=== PATIENT | male | born 1965 | race Caucasian/White ===

== ENCOUNTER 2017-08-09 20:00 | Emergency (ER) | payer OTHER ==
[~2017-08-09] VITALS: Ht 167.6 cm; Wt 113.4 kg
[~2017-08-09 20:00] MED LIST: ANTIDEPRESSANT; ATORVASTATIN CA40 MG PO; BP MED; CELEXA20 MG PO; COLACE100 MG PO; DELTASONE20 MG PO; HYDROCODONE-AP1 EAC6 PO; LOPRESSOR50 PO; LOTENSIN40 MG PO; METFORMIN HCL500 MG PO; NORCO 5-325 TA1 EACH PO; NORVASC5 MG PO; PLAVIX 75 MG TA75 M1 PO
[2017-08-09] MEDS ORDERED: METFORMIN HCL500 MG PO (20:14)
[2017-08-09] MEDS ORDERED: MOBIC7.5 MG PO (20:36)
== END 2017-08-09 21:02 | disposition home or self-care (01) ==
LOC: ER 20:00
DX: G56.01 Carpal tunnel syndrome, right upper limb (principal); I10 Essential (primary) hypertension; E11.9 Type 2 diabetes mellitus without complications; F17.210 Nicotine dependence, cigarettes, uncomplicated; Z88.1 Allergy status to other antibiotic agents

== ENCOUNTER → 2018-04-20 | Outpatient (CLI) | payer OTHER ==
[~2018-04-20] MED LIST changes: +MOBIC7.5 MG PO
== END ==
LOC: LAB 15:53
DX: R06.02 Shortness of breath (principal)

== ENCOUNTER 2020-05-30 08:59 | Observation (INO) | payer OTHER ==
[2020-05-30] VITALS (9 sets, daily range): BP systolic 159–240; BP diastolic 81–123
[~2020-05-30] VITALS: Ht 177.8 cm; Wt 111.6 kg
--- NOTE | ~2020-05-30 | D ---
[facility] [place] [address] DISCHARGE SUMMARY Name: ASHLEY SANZ Room #: 219-P [facility] Sanket Rodriguez#: [id number] Admission: 05/30/20 Attend Phys: Alfredo Mcdonald MD, Discharge: Date of : 63 Report #: [id number] THIS REPORT FOR: cc: Yary Kumar Stefanie A. RNP Mancuso, Gerald M. MD [facility] ~ HOSPITAL COURSE: The patient is a 54-year-old male who presents with onset of chest pain pressure consistent with his angina with subtle lateral wall ST elevation. He has a history of a DYSON to an LAD and SVG sequential to diagonal OM. That was we believe 5-6 years ago. He has been noncompliant, has taken no medications. Probably for the last year or so, continued tobacco use. Subsequently, went to the catheterization lab where I was able to dilate the subtotaled LAD which filled the mild to moderate size diagonal branch which had been previously bypassed the graft to the diagonal and the OM sequential was occluded. The LAD is occluded, but filled via DYSON graft and the [place] circumflex is large and mildly ectatic, but patent and the dominant right is also patent. He is going to be discharged on metoprolol 25 mg, olmesartan 40, atorvastatin 40, clopidogrel 75, a full aspirin for a month and then a baby aspirin. We will utilize dual antiplatelet therapy for a year, amlodipine 10. No lifting for 48 hours. No lying in tub, Jacuzzi or segura for a week. 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 His H and H are 14 and 44 today. His creatinine is 1.0. Troponin peaked at 17. His LDL was 123, his HDL was 40, total 182 that was off of medications. DISCHARGE DIAGNOSES: 1. Non-ST elevation myocardial infarction with successful emergent proximal left anterior descending stent, which was filling a diagonal branch. The remainder of the left anterior descending was filled via the left internal mammary artery as stated above. The bypass graft to the diagonal obtuse marginal and sequence was occluded. The large obtuse marginal was patent as I stated as was the dominant right. Ejection fraction was near normal. 2. Hypertension. 3. Hypercholesterolemia. 4. Continued tobacco abuse. 5. Tobacco/marijuana abuse. 6. Degenerative joint disease. A followup will be arranged. He currently believes he may get benefit from a security job and not yet. [facility]. I suggested he will follow up with Dr. Inocencio Saucedo at [facility]. He is to call our office if he has any issues and we certainly will try to help. By: [phone] Alfredo Mcdonald MD, FACC /nt
[2020-05-30 09:24] LABS: ABSOLUTE NEUTROPHILS 9.4 thou/uL (1.4-8.2); EOSINOPHILS 2.2 % (0.0-3.0); HEMATOCRIT 47.8 % (42.0-52.0); HEMOGLOBIN 16.3 gm/dL (14.0-18.0); LYMPHOCYTES 23.3 % (24.0-44.0); MCH 28.7 pg (26.0-34.0); MCHC 34.2 g/dL (28.0-37.0); MCV 84.1 fL (80.0-100.0); MONOCYTES 6.1 % (1.0-8.0); PLATELET COUNT 225 thou/uL (150-400); POLYS 67.4 % (36.0-66.0); RBC 5.69 mil/uL (4.50-6.00); RDW 13.7 % (10.5-14.5); WBC 13.9 thou/uL (4.0-11.0)
[2020-05-30 09:38] LABS: ANION GAP 6 mmol/L (7-16); BUN 10 mg/dL (7-18); CALCIUM 8.5 mg/dL (8.5-10.1); CHLORIDE 101 mmol/L (98-107); CO2 29 mmol/L (21-32); GLUCOSE 128 mg/dL (74-106); POTASSIUM 3.4 mmol/L (3.5-5.1); SODIUM 136 mmol/L (136-145)
[2020-05-30 09:40] LABS: APTT 29.3 Seconds (24.5-32.8); INR 0.92; PROTIME 10.1 Seconds (9.3-11.4)
[2020-05-30 09:48] LABS: ALBUMIN 3.4 g/dL (3.4-5.0); SGOT 13 U/L (15-37); SGPT 20 U/L (30-65); TOTAL BILIRUBIN 0.7 mg/dL (0.2-1.0); TOTAL PROTEIN 7.7 g/dL (6.4-8.2); TROPONIN-I <0.06 ng/mL (<0.06)
[2020-05-30 11:53] LABS: CHOLESTEROL 182 mg/dL (<200); HDL CHOLESTEROL 40 mg/dL (>40); LDL CHOLESTEROL 123 mg/dL (<100); TC:HDL 4.6 Ratio (Not establshd); TRIGLYCERIDE 98 mg/dL (<150); VLDL 20 mg/dL (<40)
--- NOTE | 2020-05-30 12:52 | NUR ---
RECEIVED PT FROM [facility] AT 1120. PT LAYING FLAT. RIGHT GROIN SITE ASSESSED WITH HARRIS DUNCAN. PTS GROIN SITE IS SOFT, MILD TENDERNESS, NO HEMATOMA PRESENT. PT ADMISSION ORDERS AND ASSESSMENT COMPLETE. VSS. WILL CONTINUE TO MONITOR.
--- NOTE | 2020-05-30 13:01 | NUR ---
PT STATES HE DOES NOT TAKE ANY HOME MEDS DESPITE THE LIST OF CARDIAC MEDICATIONS.
--- NOTE | 2020-05-30 13:37 | 2DMMODE ---
[facility] [place] [address] 2 D/M-MODE ECHOCARDIOGRAM Name: ASHELY SANZ Room #: 219-P ADM Sanket M.RToan#: [id number] Admission: 05/30/20 Attend Phys: Alfredo Mcdonald MD, Discharge: Date of : 63 Report #: [id number] THIS REPORT FOR: cc: Yary Kumar Stefanie A. RNP Park, Jin S. MD ~ APPROVED REPORT Study performed: 05/30/2020 12:34:37 EXAM: Comprehensive 2D, Doppler, and color-flow Echocardiogram Patient Location: Bedside Room #: 219 Status: routine BSA: 2.16 HR: 81 bpm BP: 240/103 mmHg Rhythm: NSR Other Information Study Quality: Good/pt flat on back Indications STEMI, status post emergent PCI Hx: CABG, HTN, HLP, tobacco and drug abuse. 2D Dimensions RVDd: 31.74 mm IVSd: 14.00 (7-11mm) LVOT Diam: 22.00 (18-24mm) LVDd: 43.00 mm PWd: 14.00 (7-11mm) LVDs: 31.00 (25-40mm) Left Atrium: 38.00 (27-40mm) Aortic Root: 36.00 mm Volumes Left Atrial Volume (Systole) Single Plane 4CH: 46.12 mL Single Plane 2CH: 55.85 mL LA ESV Index: 25.00 mL/m2 Aortic Valve AoV Peak Isidro.: 1.59 m/s AO Peak Gr.: 10.11 mmHg LVOT Max P.16 mmHg LVOT Max V: 1.14 m/s [facility] [address] [place] [address] 2 D/M-MODE ECHOCARDIOGRAM Name: ARABELLAHAYDEEASHLEY SHIELDS Room #: 219-P [facility] IN [facility]#: [id number] Admission: 05/30/20 Attend Phys: Alfredo Mcdonald, Discharge: Date of : 63 Report #: [id number] Vmax: 2.62 cm2 Mitral Valve E/A Ratio: 0.6 MV Decel. Time: 267.29 ms MV E Max Isidro.: 0.60 m/s MV A Isidro.: 1.05 m/s MV PHT: 77.51 ms IVRT: 107.27 ms Pulmonary Valve PV Peak Isidro.: 1.29 m/s PV Peak Gr.: 6.68 mmHg Pulmonary Vein P Vein S: 0.40 m/s P Vein A: 0.30 m/s P Vein D: 0.28 m/s P Vein A Dur.: 114.2 msec P Vein S/D Ratio: 1.43 Tricuspid Valve TR Peak Isidro.: 2.88 m/s RAP Estimate: 5.00 mmHg TR Peak Gr.: 33.26 mmHg PA Pressure: 38.00 mmHg Left Ventricle The left ventricle is normal size. There is normal LV segmental wall motion. Mild concentric left ventricular hypertrophy. Left ventricular systolic function is normal. LVEF is 65%. Mild diastolic dysfunction is present. Right Ventricle The right ventricle is normal size. The right ventricular systolic function is normal. Atria The left atrium size is normal. The right atrium size is normal. Aortic Valve The aortic valve is normal in structure. No aortic regurgitation is present. There is no aortic valvular stenosis. Mitral Valve The mitral valve is normal in structure. There is no mitral valve regurgitation noted. No evidence of mitral valve stenosis. Tricuspid Valve [facility] [address] [place] [address] 2 D/M-MODE ECHOCARDIOGRAM Name: ASHLEY SANZ Room #: 219-P [facility] IN M.R.#: [id number] Admission: 05/30/20 Attend Phys: Alfredo Mcdonald, Discharge: Date of : 63 Report #: [id number] The tricuspid valve is normal in structure. Trace tricuspid regurgitation. Estimated PAP is 35 mmHG. Pulmonic Valve The pulmonary valve is normal in structure. There is no pulmonic valvular regurgitation. Great Vessels The aortic root is normal in size. The ascending aorta is normal in size. IVC is not well visualized. Pericardium There is no pericardial effusion. <Conclusion> The left ventricle is normal size. Mild concentric left ventricular hypertrophy. Left ventricular systolic function is normal. Mild diastolic dysfunction is present. The right ventricle is normal size. The left atrium size is normal. The aortic valve is normal in structure. There is no mitral valve regurgitation noted. <ELECTRONICALLY SIGNED> By: Salty Kim MD 05/30/20 1337 133 133 Salty Kim MD /INF
--- NOTE | 2020-05-30 15:58 | NUR ---
ASSESSMENT: CM REVIEWED CHART. PT IS HERE S/P EMERGENT CATH. CM MET WITH PATIENT AND HIS SIGNIFICANT OTHER IN HIS ROOM. PT IS ALERT AND ORIENTED X4. PT REPORTS THAT THEY LIVE IN A SPLIT LEVEL HOME. PT REPORTS ABOUT 5 STEPS WITH HANDRAILS TO ENTER AND ANOTHER 5 STEPS OR SO TO HIS BEDROOM. PT REPORTS BEING FULLY INDEPENDENT WITH ADLS AND AMBULATION. PT IS SHOWING PATIENT PAY. PT REPORTS HE JUST RECENTLY GOT INSURANCE THROUGH HIS JOB AT [employer] AND REPORTS IT IS [place]. HE DOES NOT HAVE A REF # OR GROUP #. CM NOTIFIED UR RN. PT REPORTS THAT HE DOES NOT HAVE A PCP. CM STATED HE WILL LIKELY HAVE TO CALL HIS INSURANCE TO SEE HOW IS IN NETWORK BUT CM PROVIDED HIM WITH SAFETY NET CLINIC INFORMATION IN CASE WELL CONTACT FOR [facility] AND [facility]. CM PROVIDED PATIENT WITH THIS AND GOOD RX CARD. PT DOES NOT ANTICIPATE ANY NEEDS FROM CM.
--- NOTE | 2020-05-30 16:13 | CATHLAB ---
[facility] [place] [address] INVASIVE PROCEDURE REPORT Name: ASHLEY SANZ Room #: 219-P ADM Sanket Rodriguez#: [id number] Admission: 05/30/20 Attend Phys: Alfredo Mcdonald MD, Discharge: Date of : 63 Report #: [id number] THIS REPORT FOR: cc: Yary Kumar Stefanie A. RNP Mancuso, Gerald M. MD [facility] ~ APPROVED REPORT Study performed: 05/30/2020 09:10:22 Patient Details Patient Status: ED Room #: The patient is a 54 year-old male Event Personnel Alfredo Mcdonald Public Affairs Specialist, Shanna Patel RTR, TOBACCO STEMMER Monitor, Mireya Thibodeaux Ramos, Dexter RN RN, Galdino Barros RN utility worker forge Performed Art Access - R femoral artery* Left Heart Cath Coronaries, Bypass Grafts 6715451 CCORCABG Aortogram Abdominal Peripheral Angio 854035 87502 Initial Mod Sed Same Phys/QHP Gr5y 489402 43225 Mod Sed Same Phys/QHP Ea 087551 LEELEE Revasc AMI Total/Sub Single LAD C9606 AMIREVSING Hemostasis w/ Mynx Indication STEMI (>0 to less than or equal to 6 hours), Chest pain Procedure Narrative The Right Groin^ was infiltrated with 1% Lidocaine subcutaneous anesthesia. A PINNACLE 6FR Sheath #[id number] sheath was inserted into the RFA^. Coronary angiography was performed using coronary diagnostic catheters. The right coronary system was accessed and visualized with a JR4 catheter. The left coronary system was accessed and visualized with a JL4 catheter. The left ventricle was accessed and visualized with a ANGLED PIGTAIL catheter. Left ventriculogram was performed in 30 degree projection. An aortogram of the abdominal aorta was performed. Closure device was deployed with a 6 Fr MYNXGRIP 6/7F #[id number]. The patient tolerated the procedure well and there were no complications associated with the procedure. There was no hematoma. Intraoperative Conscious Sedation [facility] [address] [place] [address] INVASIVE PROCEDURE REPORT Name: ASHLEY SANZ Room #: 219-P [facility] IN M.R.#: [id number] Admission: 05/30/20 Attend Phys: Alfredo Mcdonald, Discharge: Date of : 63 Report #: [id number] Sedation start time: 09:33 Case end Time: 10:36 Fentanyl 50 mcg Versed 1 mg Fluoro Time: 8.50 minutes Dose: DAP 54809.20 cGycm2 2573 mGy Contrast Type and Amount: Omnipaque 225 ml Hemodynamics The aortic pressure is 213/104 mmHg with a mean of 147 mmHg. The left ventricular pressure is 196/16 mmHg with a mean of mmHg. The left ventricular end diastolic pressure is 40 mmHg. PCI Technique Lesion Percutaneous coronary intervention was performed on the proximal left anterior descending artery segment. A LAUNCHER 6FR EBU 3.75 #[id number] Guide Catheter was used to engage the ostium. A Luge Wire .014 x 182CM #[id number] Interventional Guidewire was used to cross the lesion. BALLOON DILATION A Balloon catheter Sprinter OTW 2.5 x 12 #[id number] was inserted and inflated up to 8.00atm for 24seconds. Additional Inflation: 12.00atm for 22seconds. STENT DEPLOYMENT A drug-eluting stent RESOLUTE NELSON OTW 2.75 X 12 #[id number] was inserted and inflated up to 12.00atm for 23seconds. Additional Inflation: 15.00atm for 22seconds. Conclusion #1. Successful PTCA stent of a subtotal ostial LAD lesion. Filling the diagonal branch the LAD is occluded and filled via DYSON. The graft to the diagonal branch is occluded. Final result was MAURO grade III flow with a 2.75 x 12 resolute [place] in the proximal LAD. #2 left main mild disease large giving rise to LAD circumflex. #3 the LAD occludes after the diagonal and septal takeoff. It is filled via DYSON graft. #4 DYSON to LAD is intact with mild irregularities in the LAD to the apex. #5 circumflex OM is large and somewhat ectatic. High rising first OM moderate disease but small area of distribution. #6 a large circumflex vessel fills a large distal OM branch with mild ectasia and then the distal circumflex in the AV groove has an eccentric 70% lesion treat medically #7 dominant right coronary artery with mild irregularities filling a [facility] [address] [place] [address] INVASIVE PROCEDURE REPORT Name: ASHLEY SANZ Room #: 219-P [facility] IN M.R.#: [id number] Admission: 05/30/20 Attend Phys: Alfredo Mcdonald, Discharge: Date of : 63 Report #: [id number] moderate sized PDA free of disease #8 normal left ventricular size EF near normal subtle anterior lateral wall leg EF 55% #9 abdominal aorta revealing aortic tortuosity but no aneurysm. Renal arteries appear to be patent. Recommendations and plan: Continue aggressive risk factor modification. Dual antiplatelet therapy has been initiated. Patient has had issues with noncompliance and perhaps some vasoconstrictive recreational drugs. Pain-free resolution of EKG changes transfer to CCU. <ELECTRONICALLY SIGNED> By: Alfredo Mcdonald MD, FACC 05/30/20 1613 161 12 Alfredo Mcdonald MD, FACC /INF
[2020-05-31 00:25] VITALS: BP 178/101
[2020-05-31 03:21] LABS: HEMOGLOBIN 14.6 gm/dL (14.0-18.0); MCH 28.1 pg (26.0-34.0); MCHC 33.1 g/dL (28.0-37.0); RBC 5.18 mil/uL (4.50-6.00); RDW 13.9 % (10.5-14.5); WBC 16.8 thou/uL (4.0-11.0)
[2020-05-31 03:25] LABS: CALCIUM 8.2 mg/dL (8.5-10.1); POTASSIUM 3.4 mmol/L (3.5-5.1)
[2020-05-31 03:37] LABS: ALBUMIN 3.2 g/dL (3.4-5.0); TOTAL PROTEIN 6.9 g/dL (6.4-8.2)
[2020-05-31 03:38] LABS: TROPONIN-I 17.64 ng/mL (<0.06)
[2020-05-31 05:00] VITALS: BP 157/93
--- NOTE | 2020-05-31 08:09 | NUR ---
ASSUME CARE 1900. PT/VITALS STABLE. DENIES ANY PAIN. TOLERATES ACTIVITY WELL. NO DISTRESS NOTED THROUGH THE SHIFT. BP RUNS VERY HIGH. PT INDICATES HE LOST HIS JOB AND HEALTH IUNSURANCE AND HAS NOT TAKEN BP MEDS IN OVER A YEAR. ORDERS FFPARMINDER GIBBS FOR BYSTOLIC AND NORVASC STAT AND 2 DAILY. BYSTOLIC GIVEN ONCE BECAUSE PT IN ON METOPROLOL. CARDIOLOGY TO ADDRESS BETA TODD ORDERS WITH AM. PT COULD BENEFIT FROM NUTRITION AND LIFESTYLE CHANGE EDUCATION. WILL CONTINUE TO MONITOR AND FOLLOW WITH POC
[2020-05-31 09:21] VITALS: BP 157/94
[2020-05-31] MEDS ORDERED: ASPIRIN325 PO (09:29)
[2020-05-31] MEDS ORDERED: BENICAR40 MG PO (09:29)
[2020-05-31] MEDS ORDERED: LIPITOR40 MG PO (09:31)
[2020-05-31] MEDS ORDERED: NORVASC5 MG PO (09:31)
[2020-05-31] MEDS ORDERED: CLOPIDOGREL75 MG PO (09:31)
[2020-05-31] MEDS ORDERED: LOPRESSOR50 PO (09:31)
[2020-05-31 09:57] VITALS: BP 240/123
--- NOTE | 2020-05-31 10:37 | NUR ---
ASSUMED CARE SHIFT CHANGE. ASSESSMENT CHARTED.MEDS GIVNE. DENIES PAIN. VSS. R GROIN SITE CDI NO HEMATOMA BRUISING NOTED. DENIES CP. DC ORDERS IN. SCRIPTS SENT TO PHARM IN [facility] PREFERRED BY PT. INFO FOR [facility] AND [facility] GIVEN TO PT. DISCUSSED DC PAPERWORK WITH PT COMMUNICATES UNDERSTANDING. PT LEFT WITH ALL BELONGINGS ACCOMPANIED BY SPOUSE.
--- NOTE | 2020-06-02 07:15 | EKG ---
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1965 Requested By: Terrence Hinton Order Number: [id number] MD: Alfredo Navarro Measurements Intervals [place] Rate: 81 P: 27 NE: 144 QRS: -5 QRSD: 98 T: -1 QT: 397 QTc: 461 Interpretive Statements Sinus rhythm Left atrial enlargement Nonspecific repol abnormality, inferior leads J Point elevation precordial leads Baseline wander in lead(s) V6 Compared to ECG 12/15/2014 07:30:40 Atrial abnormality now present Early repolarization now present Prolonged QT interval no longer present Electronically Signed On 06-02-2020 7:15:32 CDT by Alfredo Navarro [email or web address] <ELECTRONICALLY SIGNED> By: Alfredo Navarro MD, FACC 06/02/20 0715 4 0905 Alfredo Navarro MD, FAC /EPI
--- NOTE | 2020-06-02 07:20 | EKG ---
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: STEVE : 1965 Requested By: April Hodges Order Number: [id number] MD: Alfredo Navarro Measurements Intervals [place] Rate: 71 P: 31 DC: 144 QRS: 13 QRSD: 101 T: 100 QT: 409 QTc: 445 Interpretive Statements Sinus rhythm Left atrial enlargement Poor R-wave progression V1-3 Nonspecific T abnormalities, lateral leads Compared to ECG 05/30/2020 09:05:33 T-wave abnormality now present Early repolarization no longer present ST (T wave) deviation no longer present Electronically Signed On 06-02-2020 7:20:19 CDT by Alfredo Navarro [email or web address] <ELECTRONICALLY SIGNED> By: Alfredo Navarro MD, [facility] 06/02/20 0720 9 9 Alfredo Navarro MD, [facility] /EPI
== END 2020-05-31 10:53 | disposition home or self-care (01) ==
LOC: ER 08:59 → 2N 10:00
PROVIDERS: Emergency Medicine; Nurse Practitioner Adult Health; ADMIT Internal Medicine Cardiovascular Disease; ATTEND Internal Medicine Cardiovascular Disease
DX: I21.4 Non-ST elevation (NSTEMI) myocardial infarction (principal); I10 Essential (primary) hypertension; E78.00 Pure hypercholesterolemia, unspecified; M19.90 Unspecified osteoarthritis, unspecified site; I25.10 Atherosclerotic heart disease of native coronary artery without angina pectoris; Z95.1 Presence of aortocoronary bypass graft; E11.9 Type 2 diabetes mellitus without complications; F12.10 Cannabis abuse, uncomplicated; F17.200 Nicotine dependence, unspecified, uncomplicated; Z79.84 Long term (current) use of oral hypoglycemic drugs; Z79.899 Other long term (current) drug therapy